=== PATIENT | male | born 1970 | race African-American/Black ===

== ENCOUNTER → 2018-06-19 | Day surgery (SDC) | payer OTHER ==
[~2018-06-19] MED LIST: ALBUTEROL SULFATE 2.5 MG/3 ML NEBU. NEB PRN; AMLO10TA4 PO; BACL10TA PO; BUPIVACAINE MPF 0.5% 30 ML VIAL. ONE; CETI10TA22 PO; CLIN300C8 PO; CLINDAMYCIN 600MG PREMIX 50 ML IV ONE; CODE1CAP19 PO; DOCU-109 PO; KETAMINE HCL 500 MG/10 ML VIAL. ONE; LIDOCAINE 1% PF 30 ML VIAL. ONE; LIDOCAINE 2% PF Vial for OR 5 ML VIAL. ONE; LISI40TA PO; MIDAZOLAM HCL PF 2 MG/2 ML VIAL. IV ONE; MIDAZOLAM HCL PF 2 MG/2 ML VIAL. ONE; ONDANSETRON PF 4 MG/2 ML VIAL. IV PRN; OXYC20TA34 PO; OXYC5CAP PO; PANT40TA3 PO; PREG75CA PO; PROPOFOL 20 ML IV ONE; oxyCODONE/APAP 5/325 1 TAB TABLET ONE
[2018-06-19] MEDS: IV RINGERS SOLUTION,LACTATED 1,000 ML IV SCH (08:43)
[2018-06-19] MEDS: CLINDAMYCIN 600MG PREMIX 50 ML IV ONE (08:45)
[2018-06-19] MEDS: BUPIVACAINE MPF 0.5% 30 ML VIAL. ONE (10:21)
[2018-06-19] MEDS: LIDOCAINE 1% PF 30 ML VIAL. ONE (10:21)
[2018-06-19] MEDS: BACITRACIN 50,000 UNIT VIAL. ONE (10:21)
[2018-06-19] MEDS: oxyCODONE IR 5 MG TABLET PO PRN (10:49)
[2018-06-19 10:55] VITALS: BP 141/79
== END | disposition home or self-care (01) ==
LOC: SURG 07:47
PROVIDERS: ATTEND Anesthesiology Pain Medicine
DX: T85.193A Other mechanical complication of implanted electronic neurostimulator, generator, initial encounter (principal); I10 Essential (primary) hypertension; F32.9 Major depressive disorder, single episode, unspecified; K21.9 Gastro-esophageal reflux disease without esophagitis; Z98.890 Other specified postprocedural states; Z82.49 Family history of ischemic heart disease and other diseases of the circulatory system; Z79.899 Other long term (current) drug therapy; Z88.0 Allergy status to penicillin; Y83.8 Other surgical procedures as the cause of abnormal reaction of the patient, or of later complication, without mention of misadventure at the time of the procedure; Y92.89 Other specified places as the place of occurrence of the external cause; G47.30 Sleep apnea, unspecified; Z90.49 Acquired absence of other specified parts of digestive tract
CPT/HCPCS: 63685; C1767; J2001; J2250; J2704; J3010; J3490; J7120; 63663

== ENCOUNTER → 2021-07-27 | Outpatient (CLI) | payer OTHER ==
[2018-06-19 10:55] VITALS: BP 141/79
[~2021-07-27] MED LIST changes: -ALBUTEROL SULFATE 2.5 MG/3 ML NEBU. NEB PRN; -BUPIVACAINE MPF 0.5% 30 ML VIAL. ONE; -CETI10TA22 PO; +CETI10TA74 PO; +CLIN-95 PO; -CLIN300C8 PO; -CLINDAMYCIN 600MG PREMIX 50 ML IV ONE; -KETAMINE HCL 500 MG/10 ML VIAL. ONE; -LIDOCAINE 1% PF 30 ML VIAL. ONE; -LIDOCAINE 2% PF Vial for OR 5 ML VIAL. ONE; -LISI40TA PO; +LISI40TA6 PO; -MIDAZOLAM HCL PF 2 MG/2 ML VIAL. IV ONE; -MIDAZOLAM HCL PF 2 MG/2 ML VIAL. ONE; -ONDANSETRON PF 4 MG/2 ML VIAL. IV PRN; -OXYC20TA34 PO; +OXYC20TA35 PO; -PROPOFOL 20 ML IV ONE; -oxyCODONE/APAP 5/325 1 TAB TABLET ONE
--- NOTE | 2021-07-27 12:13 | RAD ---
EXAM: RENAL DOPPLER ULTRASOUND. HISTORY: Hypertension. COMPARISON: None. FINDINGS: Grayscale and Doppler analysis of the renal vasculature was performed bilaterally. Grayscal e analysis of the kidneys and bladder were also performed. The peak systolic velocities within the proximal and distal right renal artery are 153 cm/s, 193 cm/s , and 83 cm/s, respectively. The right renal vein is patent. The corresponding measurements on the left are 163 cm/s, 192 cm/s, and 132 cm/s, respectively. The le ft renal vein is patent. The systolic velocity within the abdominal aorta at the level of the renal arteries is 122 cm/s. The inferior vena cava is grossly patent and normal in caliber. The right kidney measures 11.3 cm. Cortical thickness and echogenicity are preserved. There is no hyd ronephrosis. A benign cyst in the right kidney measures 1.7 x 1.6 cm. The left kidney measures 11.8 cm. Cortical thickness and echogenicity are preserved. There is no hydr onephrosis. Multiple exophytic masses most likely reflect cysts. The largest at the lower pole measur es 4.2 x 3.7 cm. The others are incompletely assessed currently and measure up to 1.6 cm. Diffuse hepatic steatosis is suspected. IMPRESSION: 1. No hemodynamically significant stenosis within the mid portions of both renal arteries. 2. Bilateral renal cysts are incompletely assessed but are most likely benign. These could be further assessed by CT or MRI if there is persistent concern. 2. Suspect diffuse hepatic steatosis. Electronically signed by: Leah Kim MD (07/27/2021 12:10 PM) [id number]
== END ==
LOC: US 08:52
PROVIDERS: ATTEND Family Medicine Sports Medicine
DX: N28.1 Cyst of kidney, acquired (principal); I10 Essential (primary) hypertension
CPT/HCPCS: 93975